=== PATIENT | female | born 1955 | race Caucasian/White ===

== ENCOUNTER 2022-06-11 13:24 | Outpatient (REF) | payer MEDICARE, OTHER, SELFPAY ==
[2022-06-11 13:52] LABS: MANUAL DIFF FLAG NO
[2022-06-11 14:31] LABS: Basophils Absolute Auto 0.1 X10*3/uL (0.0-0.2); Basophils Percent Auto 0.6 % (0-2); Eosinophils Absolute Auto 0.1 X10*3/uL (0.0-0.4); Eosinophils Percent Auto 1.4 % (0-4); Hematocrit 36.4 % (37.0-47.0); Imm Gran Abs Auto 0.02 X10*3/uL (0.00-0.03); Imm Gran Pct Auto 0.2 % (0.0-0.4); Lymphocytes Absolute Auto 2.1 X10*3/uL (1.2-4.9); Lymphocytes Percent Auto 26.2 % (20-40); Mean Corpuscular Hemoglobin 33.7 pg (27.0-33.0); Mean Corpuscular Volume 102.2 fL (80.0-98.0); Mean Platelet Volume 10.2 fL (9.4-12.3); Monocytes Percent Auto 11.9 % (2-11); Neutrophils Absolute Auto 4.8 x10*3/uL (2.0-8.3); Neutrophils Percent Auto 59.7 % (45-73); Platelet Count 152 X10*3/uL (160-400); Red Blood Count 3.56 X10*6/uL (4.20-5.50); Red Cell Distribution Width 13.5 % (11.0-16.0); White Blood Count 8.1 X10*3/uL (4.8-10.8)
[2022-06-11 15:15] LABS: Valproate 47.4 mcg/mL (50.0-100.0)
== END 2022-06-11 13:25 | disposition home or self-care (01) ==
LOC: HO.LAB 13:24
PROVIDERS: PCP Internal Medicine; Visit Provider Registered Nurse
DX: Z79.899 Other long term (current) drug therapy (principal)
CPT/HCPCS: 36415; 80164; 85025

== ENCOUNTER 2023-01-30 13:05 | Outpatient (REF) | payer MEDICARE, OTHER, SELFPAY ==
[2023-01-30 13:22] LABS: MANUAL DIFF FLAG NO
[2023-01-30 14:28] LABS: Basophils Percent Auto 0.5 % (0-2); Eosinophils Absolute Auto 0.1 X10*3/uL (0.0-0.4); Eosinophils Percent Auto 0.6 % (0-4); Hematocrit 34.4 % (37.0-47.0); Hemoglobin 11.5 g/dl (12.0-16.0); Imm Gran Abs Auto 0.05 X10*3/uL (0.00-0.03); Imm Gran Pct Auto 0.6 % (0.0-0.4); Lymphocytes Absolute Auto 1.7 X10*3/uL (1.2-4.9); Mean Corpuscular HGB Conc 33.4 g/dl (31.0-35.0); Mean Corpuscular Hemoglobin 34.8 pg (27.0-33.0); Mean Corpuscular Volume 104.2 fL (80.0-98.0); Mean Platelet Volume 9.8 fL (9.4-12.3); Monocytes Absolute Auto 0.9 X10*3/uL (0.1-1.2); Monocytes Percent Auto 9.8 % (2-11); Neutrophils Absolute Auto 6.1 x10*3/uL (2.0-8.3); Neutrophils Percent Auto 69.5 % (45-73); Platelet Count 152 X10*3/uL (160-400); White Blood Count 8.8 X10*3/uL (4.8-10.8)
[2023-01-30 15:25] LABS: Valproate 55.5 mcg/mL (50.0-100.0)
== END 2023-01-30 13:06 | disposition home or self-care (01) ==
LOC: HO.LAB 13:05
PROVIDERS: PCP Internal Medicine; Visit Provider Registered Nurse
DX: F31.9 Bipolar disorder, unspecified (principal); F41.1 Generalized anxiety disorder; Z79.899 Other long term (current) drug therapy
CPT/HCPCS: 36415; 80164; 85025

== ENCOUNTER 2023-05-29 11:41 | Outpatient (REF) | payer MEDICARE, OTHER, SELFPAY ==
[2023-05-29 11:54] LABS: MANUAL DIFF FLAG NO
[2023-05-29 13:00] LABS: Basophils Percent Auto 0.3 % (0-2); Eosinophils Absolute Auto 0.1 X10*3/uL (0.0-0.4); Hematocrit 34.2 % (37.0-47.0); Hemoglobin 11.4 g/dl (12.0-16.0); Imm Gran Abs Auto 0.03 X10*3/uL (0.00-0.03); Imm Gran Pct Auto 0.4 % (0.0-0.4); Lymphocytes Absolute Auto 1.7 X10*3/uL (1.2-4.9); Mean Corpuscular HGB Conc 33.3 g/dl (31.0-35.0); Mean Corpuscular Hemoglobin 35.1 pg (27.0-33.0); Mean Corpuscular Volume 105.2 fL (80.0-98.0); Mean Platelet Volume 10.1 fL (9.4-12.3); Monocytes Absolute Auto 0.9 X10*3/uL (0.1-1.2); Monocytes Percent Auto 13.3 % (2-11); Platelet Count 146 X10*3/uL (160-400); Red Blood Count 3.25 X10*6/uL (4.20-5.50); Red Cell Distribution Width 13.1 % (11.0-16.0); White Blood Count 6.7 X10*3/uL (4.8-10.8)
[2023-05-29 13:44] LABS: Valproate 49.4 mcg/mL (50.0-100.0)
[2023-05-29 13:53] LABS: Alanine Aminotransferase 13 U/L (0-31); Albumin Level 3.6 g/dL (3.5-5.0); Alkaline Phosphatase 89 U/L (39-117); Anion Gap 18 (12-20); Aspartate Amino Transferase 19 U/L (5-31); Bilirubin Total 0.4 mg/dL (0.0-1.0); Blood Urea Nitrogen 69 mg/dL (9-16); Calcium 9.9 mg/dL (8.4-10.2); Carbon Dioxide 33 mmol/L (22-29); Chloride 92 mmol/L (96-108); Estimated Glomerular Filt Rate 6; Glucose Fasting 116 mg/dL (60-99); Potassium 4.5 mmol/L (3.3-5.1); Sodium 138 mmol/L (135-145); Total Protein 7.4 g/dL (6.5-8.0)
== END 2023-05-29 11:42 | disposition home or self-care (01) ==
LOC: HO.LABR 11:41
PROVIDERS: Visit Provider Registered Nurse
DX: F31.9 Bipolar disorder, unspecified (principal); F41.1 Generalized anxiety disorder; Z79.899 Other long term (current) drug therapy
CPT/HCPCS: 36415; 80053; 80164; 85025

== ENCOUNTER 2023-09-19 11:01 | Outpatient (REF) | payer MEDICARE, OTHER, SELFPAY ==
[2023-09-19 11:48] LABS: Basophils Percent Auto 0.5 % (0-2); Eosinophils Percent Auto 1.9 % (0-4); Hematocrit 32.3 % (37.0-47.0); Hemoglobin 10.8 g/dl (12.0-16.0); Imm Gran Abs Auto 0.01 X10*3/uL (0.00-0.03); Imm Gran Pct Auto 0.5 % (0.0-0.4); Lymphocytes Absolute Auto 0.2 X10*3/uL (1.2-4.9); Lymphocytes Percent Auto 10.7 % (20-40); Mean Corpuscular HGB Conc 33.4 g/dl (31.0-35.0); Mean Corpuscular Volume 98.8 fL (80.0-98.0); Mean Platelet Volume 10.8 fL (9.4-12.3); Monocytes Absolute Auto 0.4 X10*3/uL (0.1-1.2); Monocytes Percent Auto 18.4 % (2-11); Neutrophils Absolute Auto 1.4 x10*3/uL (2.0-8.3); Red Blood Count 3.27 X10*6/uL (4.20-5.50); Red Cell Distribution Width 13.3 % (11.0-16.0); SCAN SMEAR FLAG 1
[2023-09-19 11:52] LABS: Platelet Count 93 X10*3/uL (160-400); White Blood Count 2.1 X10*3/uL (4.8-10.8)
[2023-09-19 11:54] LABS: MANUAL DIFF FLAG NO
[2023-09-19 12:17] LABS: Valproate 54.3 mcg/mL (50.0-100.0)
[2023-09-19 12:22] LABS: Alanine Aminotransferase 9 U/L (0-31); Albumin Level 3.8 g/dL (3.5-5.0); Alkaline Phosphatase 105 U/L (39-117); Anion Gap 16 (12-20); Aspartate Amino Transferase 16 U/L (5-31); Bilirubin Total 0.4 mg/dL (0.0-1.0); Blood Urea Nitrogen 114 mg/dL (9-16); Calcium 9.9 mg/dL (8.4-10.2); Carbon Dioxide 27 mmol/L (22-29); Chloride 97 mmol/L (96-108); Glucose Fasting 131 mg/dL (60-99); Potassium 3.8 mmol/L (3.3-5.1); Sodium 136 mmol/L (135-145); Total Protein 7.1 g/dL (6.5-8.0)
[2023-09-19 13:22] LABS: Estimated Glomerular Filt Rate 11
== END 2023-09-19 11:02 | disposition home or self-care (01) ==
LOC: HO.LAB 11:01
PROVIDERS: PCP Internal Medicine; Visit Provider Registered Nurse
DX: F31.9 Bipolar disorder, unspecified (principal); F41.1 Generalized anxiety disorder; Z79.899 Other long term (current) drug therapy
CPT/HCPCS: 36415; 80053; 80164; 85025

== ENCOUNTER 2023-09-22 12:50 | Outpatient (REF) | payer MEDICARE, OTHER, SELFPAY | END 2023-09-22 12:51 | disposition home or self-care (01) | LOC: HO.SH 12:50 | PROVIDERS: Visit Provider Physician Assistant | DX: Z01.118 Encounter for examination of ears and hearing with other abnormal findings (principal); H90.3 Sensorineural hearing loss, bilateral | CPT/HCPCS: 92557; 92567 ==

== ENCOUNTER → 2023-12-02 08:54 | Outpatient (BNV) | payer MEDICARE, OTHER, SELFPAY | PROVIDERS: PCP Internal Medicine; Referring Provider Student in an Organized Health Care Education/Training Program; Visit Provider Internal Medicine Medical Oncology | DX: D69.6 Thrombocytopenia, unspecified (principal) | CPT/HCPCS: 99204; 99213 ==

== ENCOUNTER 2024-02-11 11:25 | Outpatient (REF) | payer MEDICARE, OTHER, SELFPAY ==
[2024-02-11 11:52] LABS: MANUAL DIFF FLAG NO
[2024-02-11 12:22] LABS: Basophils Percent Auto 0.7 % (0-2); Eosinophils Percent Auto 1.3 % (0-4); Hematocrit 31.6 % (37.0-47.0); Hemoglobin 10.2 g/dl (12.0-16.0); Imm Gran Abs Auto 0.02 X10*3/uL (0.00-0.03); Imm Gran Pct Auto 0.7 % (0.0-0.4); Lymphocytes Absolute Auto 0.3 X10*3/uL (1.2-4.9); Lymphocytes Percent Auto 9.3 % (20-40); Mean Corpuscular HGB Conc 32.3 g/dl (31.0-35.0); Mean Corpuscular Hemoglobin 32.8 pg (27.0-33.0); Mean Corpuscular Volume 101.6 fL (80.0-98.0); Mean Platelet Volume 10.7 fL (9.4-12.3); Monocytes Absolute Auto 0.3 X10*3/uL (0.1-1.2); Neutrophils Absolute Auto 2.3 x10*3/uL (2.0-8.3); Platelet Count 147 X10*3/uL (160-400); Red Blood Count 3.11 X10*6/uL (4.20-5.50); Red Cell Distribution Width 13.6 % (11.0-16.0)
[2024-02-11 12:48] LABS: Valproate 48.4 mcg/mL (50.0-100.0)
[2024-02-11 13:08] LABS: Alanine Aminotransferase 20 U/L (0-31); Albumin Level 3.7 g/dL (3.5-5.0); Alkaline Phosphatase 94 U/L (39-117); Anion Gap 10 (12-20); Aspartate Amino Transferase 24 U/L (5-31); Bilirubin Total 0.6 mg/dL (0.0-1.0); Blood Urea Nitrogen 20 mg/dL (9-16); Calcium 10.5 mg/dL (8.4-10.2); Carbon Dioxide 24 mmol/L (22-29); Chloride 110 mmol/L (96-108); Estimated Glomerular Filt Rate 58; Glucose Fasting 94 mg/dL (60-99); Potassium 4.9 mmol/L (3.3-5.1); Sodium 139 mmol/L (135-145); Total Protein 6.5 g/dL (6.5-8.0)
== END 2024-02-11 11:26 | disposition home or self-care (01) ==
LOC: HO.LAB 11:25
PROVIDERS: PCP Internal Medicine; Visit Provider Registered Nurse
DX: Z79.899 Other long term (current) drug therapy (principal); F31.9 Bipolar disorder, unspecified; F41.1 Generalized anxiety disorder
CPT/HCPCS: 36415; 80053; 80164; 85025

== ENCOUNTER 2025-02-08 10:12 | Outpatient (REF) | payer MEDICARE, OTHER, SELFPAY ==
[2025-02-08 11:16] LABS: Appearance Urine Clear; Glucose Urine UA Negative (Negative); PH 6.0 (5.0-9.0); Specific Gravity - Urine 1.015 (1.005-1.025)
--- OUTSIDE RECORDS SUMMARY | 2025-02-08 11:19 | XMS_ITS ---
Author Organization [facility] Care Team Providers Care Contracts Specialist Name Role Phone Dillan Romo Unavailable Unavailable Aby Montano Unavailable Unavailable Kerrie Cronin Unavailable Unavailable Allergies and adverse reactions No Known Allergies Care Team Name Role Address Phone Organization Dates Dillan Romo PCP [address], [address], [facility] (Office): : [facility] 07/10/2023 - 07/24/2023 Aby Montano [address], [address], [facility] (Office): : [facility] 07/10/2023 - 07/24/2023 Kerrie Cronin 38 [facility] [address] [place] [address], [address], [facility] (Office): [facility] 07/10/2023 - 07/24/2023 Immunizations Immunization Status Vaccine Details Vaccine Code CodeSystem Date Notes Influenza cancelled Influenza, split virus, trivalent, injectable, contains preservative 141 CVX created date: 07/10/2023 consent date: 07/10/2023 Educated by on 07/10/2023 Tetanus completed tetanus immune globulin 13 CVX created date: 07/10/2023 administer ed date: 01/14/2006 (Shingles) Vaccine completed zoster vaccine recombinant 187 CVX created date: 07/10/2023 administer ed date: 01/23/2023 (Shingles) Vaccine completed zoster vaccine recombinant 187 CVX created date: 07/10/2023 administer ed date: 10/30/2022 (COVID-19) [employer] Original Primary Dose Vaccine 2 of 2 completed SARS-COV-2 (COVID-19) vaccine, mRNA, spike protein, LNP, preservative free, 30 mcg/0.3mL dose 208 CVX created date: 07/10/2023 administer ed date: 12/18/2020 (COVID-19) [employer] Original Primary Dose Vaccine 1 of 2 completed SARS-COV-2 (COVID-19) vaccine, mRNA, spike protein, LNP, preservative free, 30 mcg/0.3mL dose 208 CVX created date: 07/10/2023 administer ed date: 11/27/2020 (COVID-19) [facility] Original Booster Vaccine completed SARS-COV-2 (COVID-19) vaccine, mRNA, spike protein, LNP, preservative free, 30 mcg/0.3mL dose 208 CVX created date: 07/10/2023 administer ed date: 08/09/2021 (Tetanus, Diphtheria, and Acellular Pertussis) Tdap completed tetanus toxoid, reduced diphtheria toxoid, and acellular pertussis vaccine, adsorbed 115 CVX created date: 07/10/2023 administer ed date: 06/15/2013 (Pneumococcal) PCV20- Conjugate 20-valent Vaccine cancelled Pneumococcal conjugate vaccine 20-valent (PCV20), polysaccharide [id number] conjugate, adjuvant, preservative free 216 CVX created date: 07/10/2023 consent date: 07/10/2023 Educated by on 07/10/2023 Mental Status Section Date Assessment Total Score Description 07/24/2023 BIMS 15 cognitively int act CAM 0 No delirium ind icated PHQ-9 00 07/15/2023 BIMS 12 moderate cognit amrik impairment CAM 0 No delirium ind icated PHQ-9 00 Problems Problem # Description Date of onset Resolved Date Code CodeSystem Concern Status 1 ANEMIA, UNSPECIFIED 07/10/[address] active 2 BIPOLAR DISORDER, UNSPECIFIED 07/10/[address] active 3 END STAGE RENAL DISEASE 07/10/[address] active 4 HYPOTHYROIDISM, UNSPECIFIED 07/10/[address] active 5 IMMUNODEFICIENCY DUE TO DRUGS 07/10/[address] active 6 KIDNEY TRANSPLANT STATUS 07/10/[address] active 7 LOCALIZED EDEMA 07/10/[address] a ctive 8 MUSCLE WASTING AND ATROPHY, NOT ELSEWHERE CLASSIFIED, MULTIPLE SITES 07/10/[address] active 9 OTHER LACK OF COORDINATION 07/10/[address] active 10 UNSPECIFIED ATRIAL FIBRILLATION 07/10/[address] active Reason for Referral No Reasons for Referral Entered Social History Social History Observation Description Start Date End Date Code Code System Current Smoking Status Tobacco smoking consumption unknown 298609662 SNOMED CT Sex Assigned At Female 1955 44898-2 [facility] Gender Identity Vital Signs Code Code System Vitals Name Values and Units Timing Information 53318-7 [facility] Pain Level Value=0.0 07/24/2023 58584-4 [facility] Weight Aqoxz=334.6 Units=Lbs 9279-1 [facility] Respiratory Rate Value=18.0 Units=/m in 07/23/2023 8462-4 [facility] Blood Pressure-Diastolic Value=85 Un its=mmHg 07/23/2023 8480-6 [facility] Blood Pressure-Systolic Xxcpu=932 Un its=mmHg 07/23/2023 8310-5 [facility] Body Temperature Value=98.5 Units= F 07/23/2023 8867-4 [facility] Heart rate Value=89.0 Units=/min 87540-7 [facility] O2 % BldC Oximetry Value=95.0 Units= % 07/23/2023 2339-0 [facility] Blood Sugar Jdjcu=802.0 Units=mg/dL 07/16/2023 8302-2 [facility] Height Value=60.0 Units=Inches 07/11/2023
--- OUTSIDE RECORDS SUMMARY | 2025-02-08 11:19 | XMS_ITS | Clinical Summary ---
Author Organization [address] [place] [address] Address [address] [place] [address] Phone Care Team Providers Care Negative Turner Name Role Phone Ar Butler MD Primary Care Provider [phone] Allergies No known active allergies Medications acetaminophen (TYLENOL) 325 mg capsule Take by mouth as needed. Active B complex-vitamin C-folic acid (NEPHROCAPS) 1 mg capsule TAKE ONE CAPSULE BY MOUTH ONCE DAILY 4 Active albuterol HFA (PROAIR HFA ; PROVENTIL HFA ; VENTOLIN HFA) 90 mcg/actuation inhaler Inhale 2 Puffs into the lungs 4 times daily as needed for Cough, Wheezing or Shortness of Breath. 4 Active apixaban (ELIQUIS) 5 mg tablet Take 5 mg by mouth 2 times daily. 3 Active aspirin 81 mg EC tablet Take 1 tablet (81 mg total) by mouth 1 (one) time each day. 2 Active clotrimazole (LOTRIMIN) 1 % cream Take 10 mg by mouth. 3 Active divalproex (DEPAKOTE ER) 500 mg 24 hr tablet Take 1 Tablet by mouth 2 times daily. Take 2 tablets at night 4 Active docusate sodium (COLACE) 100 mg capsule Take 1 Capsule by mouth 3 times daily as needed. Active ferrous sulfate 325 mg (65 mg elemental iron) tablet Take 1 tablet (325 mg total) by mouth 1 (one) time each day. Active midodrine (PROAMATINE) 10 mg tablet Take 1 Tablet by mouth 3 times daily. 1/2 tablet twice daily as needed 4 Active senna (SENOKOT) 8.6 mg tablet Take 1 tablet (8.6 mg total) by mouth 1 (one) time each day. 2 Active sevelamer carbonate (RENVELA) 800 mg tablet Take 2 Tablets by mouth 3 times daily. 3 Active sulfamethoxazol e-trimethoprim (BACTRIM,SEPTRA ) 400-80 mg per tablet Take 1 tablet by mouth every other day. Active tacrolimus (Envarsus XR) 1 mg extended release tablet Take 5 tablets (5 mg total) by mouth 1 (one) time each day. 3 Active torsemide (DEMADEX) 20 mg tablet Take 3 tablets (60 mg total) by mouth 1 (one) time each day. 3 Active levothyroxine (SYNTHROID, LEVOTHROID) 75 mcg tablet Take 1 tablet (75 mcg total) by mouth 1 (one) time each day. 90 tablet 1 5 Active metoprolol succinate (TOPROL-XL) 25 mg 24 hr tablet Take 1 tablet (25 mg total) by mouth 1 (one) time each day. Do not crush or chew. 90 tablet 1 5 04/19/20 25 Active gabapentin (NEURONTIN) 100 mg capsule Take 1 capsule (100 mg total) by mouth 1 (one) time each day. 90 capsule 1 5 Active atorvastatin (LIPITOR) 80 mg tablet Take 1 tablet (80 mg total) by mouth at bedtime. at bedtime 90 tablet 1 5 Active Active Problems Problem Noted Date Diagnosed Date Primary hypertension 09/29/2024 Osteoporosis 05/15/2023 A-V fistula ([facility] V24) 03/21/2022 Dialysis patient ([facility] V24) 03/21/2022 Overview (06/18/2024): On hemodialysis Hemiparesis affecting left s brigette as late effect of stroke ([facility] V24, [facility] V28) 03/21/2022 Overview (06/18/2024): right basal ganglia infarct Anxiety and depression 02/22/2021 Overview (06/18/2024): Last Assessment & Plan: Patient encouraged to reach out to therapist. Reviewed resources including crisis hotline. 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 Seborrheic dermatitis of scalp 09/09/2011 Bipolar affective disorder ([facility] V24, [facility] V28) 08/06/2010 Thyroid nodule 08/06/2010 Hypothyroidism 04/30/2006 Encounters Date Type Department Care Team Description 11/18/2024 7:32 AM EDT - 11/18/2024 11:59 PM EDT Hospital Encounter [facility] Ortho Xray [address] [place] [address] Pain Discharge Disposition: Home or Self Care from Last 3 Months Immunizations Name Administration Dates Next Due Influenza Quadrivalent, 0.5m l, preservative free (Fluarix; FluLaval; Fluzone) ages 6mo and older (Afluria) 3yo and older 04/30/2016 Influenza trivalent, with pr eservative (Fluzone; Afluria) 6mo and older 05/15/2012,04/05/2011 Influenza, Unspecified 05/11/2014,05/11/2013 Td Tetanus diptheria (Tdvax) 7yo and older 01/14 Tdap Tetanus diptheria acell ular pertussis (Boostrix; Adacel) 7yo and older 06/15/2013 Surgical History Surgery Date Site/Laterality Comments COLONOSCOPY 10/27/2008 PROCEDURE: VA COLONOSCOPY STOMA DX INCLUDING COLLJ SPEC SPX; COMMENT: Up to cecum, adequate preparation. normal colon exam SECTION 1988 PROCEDURE: HISTORICAL DELIVERY; COMMENT: failure to progress MULTIPLE TOOTH EXTRACTIONS PROCEDURE: HISTORICAL DENTAL EXTRACTION EYE SURGERY 2012 Left PROCEDURE: HISTORICAL EYE SURGERY; COMMENT: tear l retina CATARACT EXTRACTION 2014 Right PROCEDURE: HISTORICAL CATARACT REMOVAL ANKLE SURGERY 04/28/2020 Right PROCEDURE: HISTORICAL ANKLE SURGERY; COMMENT: operative internal fixation COLONOSCOPY 11/02/2020 N/A PROCEDURE: HISTORICAL COLONOSCOPY; COMMENT: two tiny polyps-hyperplastic polyps OTHER SURGICAL HISTORY 12/07/2021 Right PROCEDURE: VA INSERT TUNNELED CVC W/O SUBQ PORT/RECORDS MANAGEMENT CLERK AGE <5 YR OTHER SURGICAL HISTORY 12/07/2021 PROCEDURE: ULTRASOUND GUIDANCE FOR VASCULAR AC OTHER SURGICAL HISTORY 02/13/2022 Left PROCEDURE: VA ARTERIOVENOUS ANASTOMOSIS OPEN DIRECT; COMMENT: Left brachiobasilic arteriovenous fistula creation, first stage basilic vein transposition OTHER SURGICAL HISTORY 05/09/2022 Left PROCEDURE: VA ARVEN ANAST OPN UPR ARM BASILIC VEIN TRPOS OTHER SURGICAL HISTORY 07/16/2022 PROCEDURE: VA INTRO CATH DIALYSIS CIRCUIT DX ANGRPH FLUOR S&I OTHER SURGICAL HISTORY 07/16/2022 PROCEDURE: ULTRASOUND GUIDANCE FOR VASCULAR AC Medical History Medical History Date Comments Unspecified hypothyroidism 04/30/2006 DX:Un specified hypothyroidism Bipolar affective disorder ( [facility] V24, [facility] V28) DX:Bipolar affective disorde r ([facility]); COMMENT: on Depakote since 2007 Dialysis patient ([facility] V24) 03/21/2022 D X:Dialysis patient ([facility]); COMMENT: On hemodialysis A-V fistula ([facility] V24) 03/21/2022 DX:A-V fistula ([facility]) Hemiparesis affecting left s brigette as late effect of stroke ([facility] V24, [facility] V28) 03/21/2022 DX:Hemiparesis affecting lef t side as late effect of stroke ([facility]); COMMENT: right basal ganglia infarct Family History Medical History Relation Name Comments Stroke Father Diabetes Mother AL, 2017 Breast cancer Other 1 m cousin Uterine cancer Other 2 m cousin Colon cancer Neg Hx Ovarian cancer Neg Hx Relation Name Status Comments Brother Alive Father stroke Maternal Grandfather Maternal Grandmother Mother Other 1 m cousin Alive Other 2 m cousin Alive Paternal Grandfather Paternal Grandmother Sister Alive Son Alive Social History Tobacco Use Types Packs/Day Years Used Date Smoking Tobacco: Never Smokeless Tobacco: Never Tobacco Cessation:Counseling Given: Not Answered Alcohol Use Standard Drinks/Week Comments Not Currently 0 (1 standard drink = 0.6 oz pur e alcohol) Comments No Sex and Gender Information Value Date Recorded Sex Assigned at Not on file Legal Sex Female 11:25 AM EST Gender Identity Not on file Sexual Orientation Not on file Obstetrics History Last Filed Vital Signs Vital Sign Reading Time Taken Comments Blood Pressure 120/60 09/29/2024 9:49 AM EST Pulse 70 09/29/2024 9:49 AM EST Temperature 36.4 C (97.6 F) 09/29/2024 9:49 AM EST Respiratory Rate 20 09/29/2024 9:49 AM EST Oxygen Saturation - - Inhaled Oxygen Concentration - - Weight 84.8 kg (187 lb) 09/29/2024 9:49 AM EST Height 160 cm (5' 3 ) 09/29/2024 9:49 AM EST Body Mass Index 33.13 09/29/2024 9:49 AM EST Plan of Treatment Upcoming Encounters Date Type Department Care Team (Late st Contact Info) Description 05/23/2025 9:30 AM EDT Office Visit Adult Medicine [address] [address] Ar Butler MD [address] [place] [id number] 06/10/2025 11:00 AM EST Appointment Radiology Department - [address] [address] Health Maintenance Due Date Last Done Comments RSV Immunization Adult Patients (1 - Risk 60-74 years 1-dose series) 2017 Social Influencers of Health Screening 07/06/2022 DTaP,Tdap,and Td Vaccines (3 - Td or Tdap) 06/15/2023 06/15/2013, 01/14/2006 Pneumococcal Vaccine: 50+ Years (2 of 2 - PCV) 10/17/2023 10/16/2022 COVID-19 Vaccine (5 - Pfizer risk 2023- season) 2024 05/31/2024, 08/09/2021, 12/18/2020, Additional history exists Depression Screening 03/23/2025 03/23/2024 Falls Risk Assessment 03/23/2025 03/23/2024 Medicare Annual Wellness Visit 03/23/2025 03/23/2024 Influenza Vaccine (#1) 2025 , 05/11/2021, 08/22/2020, Additional history exists Hypertension/CHF/CAD Annual BMP Blood Test 11/23/2025 11/23/2024, 12/17/2023, 12/17/2023 Breast Cancer Screening 05/13/2026 05/13/20, 05/13/2024, 05/01/2023, Additional history exists Cholesterol Screening (Lipid Panel) 11/23/2029 11/23/2024, 12/17/2023, 12/17/2023 Colorectal Cancer Screening: Colonoscopy 11/02/2030 11/02/2020 Osteoporosis Screening (Bone Density Screening) 05/01/2033 05/01/2023 Hepatitis C Screening Completed 06/15/2013 Zoster Vaccines Completed 01/23/2023, 10/30/2022 HIB Vaccines Aged Out No longer eligi ble based on patient's age to complete this topic HPV Vaccines Aged Out No longer eligi ble based on patient's age to complete this topic Hepatitis A Vaccines Aged Out No long er eligible based on patient's age to complete this topic Hepatitis B Vaccines Aged Out No long er eligible based on patient's age to complete this topic IPV Vaccines Aged Out No longer eligi ble based on patient's age to complete this topic MMR Vaccines Aged Out No longer eligi ble based on patient's age to complete this topic Meningococcal ACWY Vaccine Aged Out N o longer eligible based on patient's age to complete this topic Meningococcal B Vaccine Aged Out No l onger eligible based on patient's age to complete this topic RSV Immunization Patients Under 20 months Aged Out No longer eligible based on patient's age to complete this topic Varicella Vaccines Aged Out No longer eligible based on patient's age to complete this topic Procedures Procedure Name Priority Date/Time Associated Diagnosis Comments THYROID STIMULATING HORMONE WITH REFLEX TO FREE T4 AND FREE T3 Routine 11/23/2024 10:47 AM EDT Hypothyroidism, unspecified type COMPREHENSIVE METABOLIC PANEL Routine 11/23/2024 10:47 AM EDT Encounter for long-term (current) use of medications LIPID PANEL WITH REFLEX TO DIRECT LDL Routine 11/23/2024 10:47 AM EDT Pure hypercholesterolemia CYTOMEGALOVIRUS PCR QUANTITATIVE Routine 11/23/2024 10:47 AM EDT Kidney replaced by transplant XR TIBIA FIBULA 2 VIEWS RIGHT Routine 11/18/2024 9:06 AM EDT Pain SCREENING MAMMOGRAPHY BI 2-VIEW BREAST INC CAD Routine 05/13/2024 9:54 AM EDT Encounter for screening mammogram for malignant neoplasm of breast DEPRESSION SCREENING Routine 03/23/2024 FALLS RISK ASSESSMENT Routine 03/23/2024 DXA BONE DENSITY STUDY 1+ SITS AXIAL SKEL Routine 05/01/2023 10:00 AM EDT Asymptomatic menopausal state COLONOSCOPY Routine 11/02/2020 HEPATITIS C SCREENING Routine 06/15/2013 from Last 3 Months or Most Recently Relevant to Health Maintenance Results * Thyroid stimulating hormone with reflex to free t4 and free t3 (11/23/2024 10:47 AM EDT) TSH 1.92 0.40 - 4.00 mcIU/mL LAB CHEMISTRY METHOD 11/23/2024 5:47 PM EDT [facility] Blood Venous blood specimen / Unknown Venipuncture / Unknown 11/23/2024 10:47 AM EDT 11/23/2024 10:47 AM EDT us Ar Butler MD LAB BLOOD ORDERABLES Final Resu lt [facility] [address] [place] [address], [place] [phone] * Lipid panel with reflex to direct LDL (11/23/2024 10:47 AM EDT) Cholesterol 145 0 - 200 mg/dL LAB CHEMISTRY METHOD 11/23/2024 2:55 PM EDT [facility] Triglycerides 61 0 - 150 mg/dL LAB CHEMISTRY METHOD 11/23/2024 2:55 PM EDT [facility] HDL 55 >=40 mg/dL LAB CHEMISTRY METHOD 11/23/2024 2:55 PM EDT [facility] LDL Calculated 78 0 - 100 mg/dL LAB CHEMISTRY METHOD 11/23/2024 2:55 PM EDT [facility] VLDL Cholesterol Derek 12.2 mg/dL LAB CHEMISTRY METHOD 11/23/2024 2:55 PM EDT [facility] Non HDL Chol. (LDL+VLDL) 90 <145 mg/dL LAB CHEMISTRY METHOD 11/23/2024 2:55 PM EDT [facility] Chol/HDL Ratio 2.6 0.0 - 4.4 LAB CHEMISTRY METHOD 11/23/2024 2:55 PM EDT [facility] Blood Venous blood specimen / Unknown Venipuncture / Unknown 11/23/2024 10:47 AM EDT 11/23/2024 10:47 AM EDT us Ar Butler MD LAB BLOOD ORDERABLES Final Resu lt [facility] [address] [place] [address], [place] [phone] * Cytomegalovirus molecular study quantitative (11/23/2024 10:47 AM EDT) Cytomegalovirus (CMV) DNA Qualitative Not detected Not detected 11/26/2024 9:19 AM EDT [facility] Cytomegalovirus (CMV) DNA Quantitative <30 <30 IU/mL 11/26/2024 9:19 AM EDT [facility] Log Cytomegalovirus <1.48 <1.48 Log (10) IU/mL 11/26/2024 9:19 AM EDT [facility] CMV DNA (cp/mL) <76 <76 Copies/mL 11/26/2024 9:19 AM EDT [facility] Comment: This test uses a polymerase chain reaction (PCR) assay from [employer] to amplify and detected conserved regions of the cytomegalovirus (CMV) genome that have been extracted from plasma. Real-time detection and quantification are used to determine the viral concentration. The analytical measurement range is 30 IU/mL to 10 million IU/mL (1.48 to 7.00 log10 IU/mL). The lower limit of detection is 30 IU/mL (1.48 log10 IU/mL). Specimens reported as DETECTED but <30 IU/mL contain detectable levels of CMV DNA but the viral load is less than the lower limit of quantitation (30 IU/mL). A negative result does not rule out infection. Test performed at [facility], [address] , [place] [address] Marialuisa Mendieta MD, PhD - Ways Operator Blood Venous blood specimen / Unknown Venipuncture / Unknown 11/23/2024 10:47 AM EDT 11/23/2024 10:47 AM EDT Grayson Merino MD LAB MICROBIOLOGY - GENERAL OR DERABLES Final Result [facility] [address] [place] [address] * (ABNORMAL) Comprehensive metabolic panel (11/23/2024 10:47 AM EDT) Sodium 143 133 - 145 mmol/L LAB CHEMISTRY METHOD 11/23/2024 2:55 PM EDT [facility] Potassium 4.4 3.5 - 5.5 mmol/L LAB CHEMISTRY METHOD 11/23/2024 2:55 PM EDT [facility] Chloride 111(H) 96 - 110 mmol/L LAB CHEMISTRY METHOD 11/23/2024 2:55 PM EDT [facility] CO2 25 21 - 32 mmol/L LAB CHEMISTRY METHOD 11/23/2024 2:55 PM [facility] Anion Gap 7 3 - 11 LAB CHEMISTRY METHOD 11/23/2024 2:55 PM [facility] Glucose 88 70 - 100 mg/dL LAB CHEMISTRY METHOD 11/23/2024 2:55 PM [facility] BUN 30(H) 5 - 25 mg/dL LAB CHEMISTRY METHOD 11/23/2024 2:55 PM [facility] Creatinine 0.83 0.50 - 1.10 mg/dL LAB CHEMISTRY METHOD 11/23/2024 2:55 PM [facility] eGFR 77 >=60 mL/min/1. 73m2 LAB CHEMISTRY METHOD 11/23/2024 2:55 PM [facility] Comment:Calculation based on the Chronic Kidney Disease Epidemiology Collaboration (CKD-EPI) equation refit without adjustment for race. BUN/Creatinine Ratio 36.1 LAB CHEMISTRY METHOD 11/23/2024 2:55 PM [facility] Calcium 9.9 8.5 - 10.5 mg/dL LAB CHEMISTRY METHOD 11/23/2024 2:55 PM [facility] AST (SGOT) 28 10 - 42 unit/L LAB CHEMISTRY METHOD 11/23/2024 2:55 PM [facility] ALT (SGPT) 25 10 - 60 unit/L LAB CHEMISTRY METHOD 11/23/2024 2:55 PM [facility] Alkaline Phosphatase 62 42 - 121 unit/L LAB CHEMISTRY METHOD 11/23/2024 2:55 PM [facility] Total Protein 6.5 6.0 - 8.0 g/dL LAB CHEMISTRY METHOD 11/23/2024 2:55 PM [facility] Albumin 3.1(L) 3.2 - 5.0 g/dL LAB CHEMISTRY METHOD 11/23/2024 2:55 PM EDT [facility] Total Bilirubin 0.5 0.0 - 1.4 mg/dL LAB CHEMISTRY METHOD 11/23/2024 2:55 PM EDT [facility] Blood Venous blood specimen / Unknown Venipuncture / Unknown 11/23/2024 10:47 AM EDT 11/23/2024 10:47 AM EDT Ar Butler MD LAB BLOOD ORDERABLES Final Resu lt [facility] [address] [place] [address], [place] [phone] * XR Tibia Fibula 2 Views Right (11/18/2024 9:06 AM EDT) Narrative RIS PACS/VR - 11/18/2024 9:06 AM EDT This order has been auto-finalized and does not contain a result. Emily Hernandez MD IMG XR PROCEDURES Final Result Performing Organization Address [facility]/ZIP Co de Phone Number RIS PACS/VR * SCREENING MAMMOGRAPHY BI 2-VIEW BREAST INC CAD (05/13/2024 9:54 AM EDT) Anatomical Region Laterality Modality Radiographic Blanca ging 05/01/2023 9:07 AM EDT Narrative 05/13/2024 11:59 AM EDT This is a summary report. The complete report is available in the patient's medical record. If you cannot access the medical record, please contact the sending organization for a detailed fax or copy. Full field digital screening tomosynthesis mammography, reviewed with CAD and compared to previous. The breasts are composed of fatty and fibroglandular tissue. No suspicious mass, architectural distortion or suspicious calcifications are identified. IMPRESSION: : No mammographic evidence of malignancy. BIRADS 1-Negative; N. Breast density: The breasts have scattered areas of fibroglandular density. 5 year breast cancer risk assessment 2.3 % Lifetime breast cancer risk assessment 8.2 % Breast cancer risk category Low (<15%) Location: [facility], [address] [place] [address], [address], [phone] Procedure Note Phani Regan MD - 05/25/2024 This is a summary report. The complete report is available in thepatient's medical record. If you cannot access the medical record, pleasecontact the sending organization for a detailed fax or copy. Full field digital screening tomosynthesis mammography, reviewed with CADand compared to previous. The breasts are composed of fatty andfibroglandular tissue. No suspicious mass, architectural distortion orsuspicious calcifications are identified. IMPRESSION: : No mammographic evidence of malignancy. BIRADS 1-Negative; N. Breast density: The breasts have scattered areas of fibroglandulardensity. 5 year breast cancer risk assessment 2.3 % Lifetime breast cancer risk assessment 8.2 % Breast cancer risk category Low (<15%) Location: [facility], [address] [place] [address], [address], [phone] Essence BECKER IMG XR PROCEDURES Final Result * Falls Risk Assessment (03/23/2024) Falls Risk Assessment abstracted Historical Provider HEALTH MAINTENANCE Final Result * Depression Screening (03/23/2024) Depression Screening abstracted Historical Provider HEALTH MAINTENANCE Final Result * DXA BONE DENSITY STUDY 1+ SITS AXIAL SKEL (05/01/2023 10:00 AM EDT) Anatomical Region Laterality Modality Bone Densitometr y 08/22/2022 11:5 3 AM EST Narrative 05/01/2023 10:42 AM EDT BONE DENSITY (DEXA) Lumbar Spine T-score is -2.9. (SD relative to 20-29 y/o adult) Z-score is -1.0. (SD relative to age matched peers) This is considered osteoporosis by WHO criteria. Left Hip T-score is -2.8. Z-score is -1.2. This is considered osteoporosis by WHO criteria. IMPRESSION: This patient is considered to have osteoporosis by WHO criteria. The [facility] Department of Internal Medicine recommends using National Osteoporosis Foundation (NOF) guidelines in treatment decisions related to osteoporosis. NOF guidelines suggest considering treatment for postmenopausal women and men aged 50 or older presenting with the following: History of hip or vertebral fracture. T-score = -2.5 (DXA) at the femoral neck, total hip, or spine, after appropriate evaluation to exclude secondary causes. Low bone mass (T-score between -1.0 and -2.5 at the femoral neck or spine) AND a 10-year probability of a hip fracture = 3% OR a 10-year probability of a major osteoporosis-related fracture = 20% based on the [place]-adapted WHO algorithm Please note that all treatment decisions require clinical judgment and consideration of individual patient factors, including patient preferences, co-morbidities, previous drug use, risk factors not captured in the FRAX model (e.g., frailty, falls, vitamin D deficiency, increased bone turnover, interval significant decline in bone density) and possible under- or over-estimation of fracture risk by FRAX. Optional alternative screening schedule based on [address] [facility] August 15, 2011 for patients with osteopenia (based on hip BMD T-score) is as follows: * advanced osteopenia (T scores -2.00 to -2.49), BMD testing every year * moderate osteopenia (T scores -1.50 to -1.99), BMD testing every 5 years mild osteopenia or normal BMD (T scores -1.50 and higher), BMD testing every 15 years Procedure Note Any Mendoza MD - 09/02/2023 BONE DENSITY (DEXA) Lumbar Spine T-score is -2.9. (SD relative to 20-29 y/o adult) Z-score is -1.0. (SD relative to age matched peers) This is considered osteoporosis by WHO criteria. Left Hip T-score is -2.8. Z-score is -1.2. This is considered osteoporosis by WHO criteria. IMPRESSION: This patient is considered to have osteoporosis by WHO criteria. The [facility] Department of Internal Medicinerecommends using National Osteoporosis Foundation (NOF) guidelines in treatment decisionsrelated to osteoporosis. NOF guidelines suggest considering treatment forpostmenopausal women and men aged 50 or older presenting with the following: History of hip or vertebral fracture. T-score = -2.5 (DXA) at the femoral neck, total hip, or spine, afterappropriate evaluation to exclude secondary causes. Low bone mass (T-score between -1.0 and -2.5 at the femoral neck or spine)AND a 10-year probability of a hip fracture = 3% OR a 10-year probability of a majorosteoporosis-related fracture = 20% based on the [place]-adapted WHO algorithm Please note that all treatment decisions require clinical judgment andconsideration of individual patient factors, including patient preferences, co- morbidities,previous drug use, risk factors not captured in the FRAX model (e.g., frailty, falls, vitaminD deficiency, increased bone turnover, interval significant decline in bone density) andpossible under- or over-estimation of fracture risk by FRAX. Optional alternative screening schedule based on [address] [facility] for patients with osteopenia (based on hip BMD T-score) is as follows: * advanced osteopenia (T scores -2.00 to -2.49), BMD testing every year * moderate osteopenia (T scores -1.50 to -1.99), BMD testing every 5years mild osteopenia or normal BMD (T scores -1.50 and higher), BMD testingevery 15 years Artemio Rivas [facility] IM DXA PROCEDURES Final Resu lt * Colonoscopy (11/02/2020) [facility] Colonoscopy no interpretation , abstracted Anatomical Region Laterality Modality Other Historical Provider HEALTH MAINTENANCE Final Result * Hepatitis C Screening (06/15/2013) [facility] Hepatitis C Screening abstracted Historical Provider HEALTH MAINTENANCE Final Result from Last 3 Months or Most Recently Relevant to Health Maintenance [place] [id number] MEDICARE [facility] Advance Directives Documents on File Type Date Recorded Patient Manager Managing Expl anation Health Care Decision (hx) 04/14/2024 HE ALTH CARE PROXY Health Care Decision (hx) 04/14/2024 HE ALTH CARE PROXY Health Care Decision (hx) 12/08/2021 AD WILLARD DIRECTIVE Health Care Decision (hx) 12/08/2021 AD WILLADR DIRECTIVE Health Care Decision (hx) 12/08/2021 AD WILLARD DIRECTIVE Health Care Decision (hx) 12/08/2021 AD WILLARD DIRECTIVE Health Care Decision (hx) 12/08/2021 AD WILLARD DIRECTIVE Health Care Decision (hx) 12/08/2021 AD WILLARD DIRECTIVE Health Care Decision (hx) 12/08/2021 AD WILLARD DIRECTIVE Health Care Decision (hx) 12/08/2021 AD WILLARD DIRECTIVE Health Care Decision (hx) 12/08/2021 AD WILLARD DIRECTIVE Health Care Decision (hx) 12/08/2021 AD WILLARD DIRECTIVE Health Care Decision (hx) 12/08/2021 AD WILLARD DIRECTIVE Health Care Decision (hx) 12/08/2021 AD WILLARD DIRECTIVE Health Care Decision (hx) 12/08/2021 AD WILLARD DIRECTIVE Care Teams Negative Turner Relationship Specialty Start Date End Date Ar Butler MD [address] [place] [phone] PCP - General Internal Medicine 08/03/24
--- OUTSIDE RECORDS SUMMARY | 2025-02-08 11:19 | XMS_ITS | Encounter Summary ---
Author Organization [facility] Address [address] [place] [address] [place] [address] Phone Care Team Providers Care Bracelet Form Coverer Name Role Phone Ar Butler MD Primary Care Provider Encounter Details Date Type Department Care Team (Late st Contact Info) Description 07/15/2023 Documentation Only [facility] [address] [place] [address] Justin Stapleton MD [address] [place] [address] Dr. Юлия [place] [phone] Social History Tobacco Use Types Packs/Day Years Used Date Smoking Tobacco: Never Assessed Comments Unknown Sex and Gender Information Value Date Recorded Sex Assigned at Not on file Legal Sex Female 4:51 PM EST Gender Identity Not on file Sexual Orientation Not on file documented as of this encounter Plan of Treatment Upcoming Encounters Date Type Department Care Team (Late st Contact Info) Description 05/20/2025 9:15 AM EDT Office Visit [facility] P.. [address] [phone] Grayson Merino MD [address] [phone] documented as of this encounter Visit Diagnoses Not on filedocumented in this encounter Care Teams Bracelet Form Coverer Relationship Specialty Start Date End Date Ar Butler MD [address] [place] [phone] PCP - General 08/07/20 documented as of this encounter
[2025-02-08 11:51] LABS: Anion Gap 10 (12-20); Blood Urea Nitrogen 28 mg/dL (9-16); Calcium 10.1 mg/dL (8.4-10.2); Carbon Dioxide 27 mmol/L (22-29); Chloride 109 mmol/L (96-108); Estimated Glomerular Filt Rate > 60; Potassium 4.8 mmol/L (3.3-5.1); Sodium 141 mmol/L (135-145)
[2025-02-08 12:16] LABS: Microalbum/Creatinine Ratio Ur 20.3 ug/mg cr (<30); Total Protein Urine Random < 7 mg/dL (<12)
[2025-02-09 20:44] LABS: CMV DNA Qn PCR NOT DETECTED Log IU/mL (NOT DETECTED)
== END 2025-02-08 10:13 | disposition home or self-care (01) ==
LOC: HO.LAB 10:12
PROVIDERS: Absent Provider Registered Nurse; PCP Internal Medicine; Referring Provider Internal Medicine Medical Oncology; Visit Provider Internal Medicine Nephrology
DX: Z79.899 Other long term (current) drug therapy (principal)
CPT/HCPCS: 36415; 80051; 81001; 82043; 82310; 82565; 82570; 84156; 84520; 87497

== ENCOUNTER 2025-06-03 12:46 | Outpatient (REF) | payer MEDICARE, OTHER, SELFPAY ==
[2025-06-03 13:06] LABS: MANUAL DIFF FLAG NO
[2025-06-03 14:16] LABS: Hematocrit 34.0 % (37.0-47.0); Hemoglobin 11.0 g/dl (12.0-16.0); Imm Gran Abs Auto 0.02 X10*3/uL (0.00-0.03); Imm Gran Pct Auto 0.5 % (0.0-0.4); Lymphocytes Absolute Auto 0.8 X10*3/uL (1.2-4.9); Mean Corpuscular HGB Conc 32.4 g/dl (31.0-35.0); Mean Corpuscular Hemoglobin 31.6 pg (27.0-33.0); Mean Corpuscular Volume 97.7 fL (80.0-98.0); NRBC Abs Auto 0.000 X10*3/uL (0.0-0.012); NRBC Pct Auto 0.0 /100WBC (0.0-0.2); Platelet Count 110 X10*3/uL (160-400); Red Blood Count 3.48 X10*6/uL (4.20-5.50); White Blood Count 4.3 X10*3/uL (4.8-10.8)
[2025-06-03 14:53] LABS: Alanine Aminotransferase 16 U/L (0-31); Albumin Level 3.5 g/dL (3.5-5.0); Alkaline Phosphatase 52 U/L (39-117); Anion Gap 9 (12-20); Aspartate Amino Transferase 27 U/L (5-31); Blood Urea Nitrogen 32 mg/dL (9-16); Calcium 10.1 mg/dL (8.4-10.2); Carbon Dioxide 25 mmol/L (22-29); Chloride 110 mmol/L (96-108); Estimated Glomerular Filt Rate > 60; Potassium 4.8 mmol/L (3.3-5.1); Sodium 139 mmol/L (135-145); Total Protein 6.0 g/dL (6.5-8.0)
--- OUTSIDE RECORDS SUMMARY | 2025-06-03 14:55 | XMS_ITS | Encounter Summary ---
Author Organization [facility], Address [address] [place] [address] [place] [address] Phone Care Team Providers Care Garment Manufacturing Supervisor Name Role Phone Ar Butler MD Primary Care Provider [phone] Encounter Details Date Type Department Care Team (Late st Contact Info) Description 07/15/2023 Documentation Only [facility], [address] [place] [address] Justin Stapleton MD [address] [place] [phone] Social History Tobacco Use Types Packs/Day Years [...] Care Team (Late st Contact Info) Description 08/22/2025 10:30 AM EST Office Visit [facility] [address] [phone] Grayson Merino MD [address] [phone] documented as of this encounter Visit Diagnoses Not on filedocumented in this encounter Care Teams Garment Manufacturing Supervisor Relationship Specialty Start Date End Date Ar Butler MD [address] [place] [phone] PCP - General 08/07/20 documented as of this encounter
--- OUTSIDE RECORDS SUMMARY | 2025-06-03 14:55 | XMS_ITS ---
Author Name [facility] Organization Unknown Care Team Organization Name Specialty Phone Email Start Date End Da te [facility] 03/16/2025 [facility] DORY JOSE Primary Care 07/09/2023 [facility] Desiree Cunningham Primary Care 04/03/2023 024
--- OUTSIDE RECORDS SUMMARY | 2025-06-03 14:55 | XMS_ITS | Clinical Summary ---
Author Organization [facility] Address [address] [phone] Phone Care Team Providers Care Strategic Accounts Manager Name Role Phone Ar Butler MD Primary Care Provider [phone] Allergies No known active allergies Medications divalproex (DEPAKOTE) 500 MG 24 hr tablet Take 1,000 mg by mouth in the morning and 1,000 mg in the evening. 1 Active levothyroxine (SYNTHROID, LEVOTHROID) 75 MCG tablet Take 1 tablet by mouth 1 (one) time each day 1 Active cholecalciferol (VITAMIN D-3) 25 MCG (1000 UT) tablet Take 25 mcg by mouth 1 (one) time each day 3 Active Acetaminophen (Tylenol) 325 MG capsule Take 650 mg by mouth every 4 (four) hours if needed Active aspirin (ST COLE) 81 MG EC tablet Take 1 tablet by mouth 1 (one) time each day 2 Active atorvastatin (LIPITOR) 80 MG tablet Take 1 tablet by mouth at bed time 3 Active gabapentin (NEURONTIN) 100 MG capsule Take 100 mg by mouth at bed time 3 Active senna (SENOKOT) 8.6 MG tablet Take 1 tablet by mouth 1 (one) time each day if needed for constipation 2 Active torsemide (DEMADEX) 20 MG tablet Take 1 tablet by mouth 1 (one) time if needed 3 Active Multiple Vitamin (multivitamin) tablet Take 1 tablet by mouth 1 (one) time each day Active BELATACEPT IV Infuse into a venous catheter Active metoprolol succinate XL (TOPROL XL) 25 MG 24 hr tabletIndicatio ns:Kidney transplant status,Hyperten keyla TAKE ONE TABLET BY MOUTH ONCE DAILY 90 tablet 3 5 Active ferrous sulfate 325 (65 Fe) MG EC tablet Take 325 mg by mouth in the morning and 325 mg at noon and 325 mg in the evening. Take with meals. Do not crush, chew, or split.. Active Melatonin-Pyrid oxine (MELATIN PO) Take 325 mg by mouth Active traZODone (DESYREL) 50 MG tablet Take 50 mg by mouth every night Active mycophenolate (MYFORTIC) 360 MG EC tabletIndicatio ns:Kidney transplant status TAKE 1 TABLET (360 MG TOTAL) BY MOUTH IN THE MORNING AND 1 TABLET (360 MG TOTAL) IN THE EVENING. 60 tablet 3 5 02/29/20 26 Active Active Problems Problem Noted Date Diagnosed Date Kidney transplant status 12/31/2023 Kidney transplant failure 12/29/2023 Decreased libido 02/22/2021 Overview (06/25/2021): Last Assessment & Plan: Ways to increase libido were discussed including: Use a product such as K-Y Jelly to lubricate your vagina during sex. Increase the amount of foreplay before sex. Reduce your stress before sex by taking a warm bath or doing something else to help you relax. Enjoy other types of sexual activity besides intercourse Discussed relation of sexual dysfunction to underlying causes including depression, medications, life stress, etc. Supportive counseling including encouraging patient to create time and special space for sexual expression, free from distractions. Suggest a variety in sexual practices including romantic novels, movies, and different techniques with partner including the use of lubricants, vibrators and toys as tolerated. Essential hypertension 08/17/2019 Secondary hyperparathyroidism 06/16/2018 Vitamin D deficiency 02/06/2018 Stage 5 chronic kidney disease 08/14/2017 Overview (06/25/2021): Dr Edmond [place] nephropathy 08/16/2016 Seborrheic dermatitis of scalp 09/09/2011 Encounters Date Type Department Care Team Description 05/20/2025 9:15 AM EDT Office Visit [facility] [address] [phone] Grayson Merino MD Kidney transplant status (Primary Dx); Essential hypertension from Last 3 Months Immunizations Immunization Administration Dates Next Due Influenza TIV (IM) 04/24/2015,05/15/2012, 011 Influenza, MDCK, PF, Quadrivalent 05/11/2021,,04/09/2018 Influenza, Quadrivalent, Preservative Free 04/29,04/30/2016 Influenza, Unspecified 04/30/2016,05/11/2014, Pfizer SARS-COV-2 08/09/2021,12/18/2020,11/28/19 21 Shingrix 01/23/2023,10/30/2022 Td 01/14/2006 Tdap 06/15/2013 Tetanus 01/14/2006 Family History Relation Status Comments Father Mother Social History Tobacco Use Types Packs/Day Years Used Date Smoking Tobacco: Never Smokeless Tobacco: Never Tobacco Cessation:Counseling Given: Not Answered Alcohol Use Standard Drinks/Week Comments Never 0 (1 standard drink = 0.6 oz pur e alcohol) Comments Unknown Sex and Gender Information Value Date Recorded Sex Assigned at Not on file Legal Sex Female 4:51 PM EST Gender Identity Not on file Sexual Orientation Not on file Last Filed Vital Signs Vital Sign Reading Time Taken Comments Blood Pressure 120/60 05/20/2025 9:17 AM EDT Pulse 77 05/20/2025 9:17 AM EDT Temperature - - Respiratory Rate - - Oxygen Saturation 98% 05/20/2025 9:17 AM EDT Inhaled Oxygen Concentration - - Weight 81.2 kg (179 lb) 05/20/2025 9:17 AM EDT Height - - Body Mass Index - - Plan of Treatment Upcoming Encounters Date Type Department Care Team (Late st Contact Info) Description 08/22/2025 10:30 AM EST Office Visit [facility] [address] [phone] Grayson Merino MD [address] [phone] Health Maintenance Due Date Last Done Comments Breast Cancer Screening 1955 Pneumococcal Vaccine: 50+ Years (1 of 2 - PCV) 1976 Colonoscopy (Post-Transplant Patient) 06/27/2023 Mammogram (Post-Transplant Patient) 06/27/2023 Pelvic Exam (Post-Transplant Patient) 06/27/2023 Influenza Vaccine (#1) 2025 , 08/22/2020, 04/09/2018, Additional history exists Hepatitis B Vaccine Aged Out No longe r eligible based on patient's age to complete this topic Procedures Procedure Name Priority Date/Time Associated Diagnosis Comments PTH, INTACT Routine 05/26/2025 11:10 AM EDT Kidney transplant status Essential hypertension CBC AND DIFFERENTIAL Routine 05/26/2025 11:10 AM EDT Kidney transplant status Essential hypertension PROTEIN / CREATININE RATIO, URINE Routine 05/26/2025 11:10 AM EDT Kidney transplant status Essential hypertension URINE ALBUMIN / CREATININE RATIO Routine 05/26/2025 11:10 AM EDT Kidney transplant status Essential hypertension URINALYSIS WITH MICROSCOPIC Routine 05/26/2025 11:10 AM EDT Kidney transplant status Essential hypertension RENAL FUNCTION PANEL Routine 05/26/2025 11:10 AM EDT Kidney transplant status Essential hypertension MICROSCOPIC EXAMINATION - DO NOT USE Routine 05/26/2025 11:10 AM EDT from Last 3 Months Results * Microscopic Examination (05/26/2025 11:10 AM EDT) WBC, Urine 0-5 0 - 5 /hpf [facility] RBC, Urine None seen 0 - 2 /hpf [facility] Squamous Epithelial, Urine 0-10 0 - 10 /hpf [facility] Casts None seen None seen /lpf [facility] Bacteria, Urine None seen None seen/Few [facility] 05/26/2025 11:1 0 AM EDT 05/26/2025 Grayson Merino MD LAB MICROBIOLOGY - GENERAL OR DERABLES Final Result Performing Organization Address [facility]/ZIP Co de Phone Number [facility] [address] [place] [address] * Protein, Total, Random Urine w/Creatinine (Protein/Creat Ratio) (05/26/2025 11:10 AM EDT) Creatinine, Ur 52.1 Not Estab. mg/dL [facility] Protein, Ur 6.0 Not Estab. mg/dL [facility] Urine Protein/Creatin ine Ratio 115 0 - 200 mg/g creat [facility] Urine Urine specimen obtained by clean catch procedure / Unknown 05/26/2025 11:10 AM EDT 05/26/2025 Grayson Merino MD LAB URINE ORDERABLES Final Re sult Performing Organization Address [facility] Co de Phone Number [facility] [address] [place] [phone] * Urine Albumin / Creatinine Ratio (05/26/2025 11:10 AM EDT) Albumin, Urine 9.1 Not Estab. ug/mL [facility] Albumin/Creatin ine Ratio 17 0 - 29 mg/g creat [facility] Comment: Normal: 0 - 29 Moderately increased: 30 - 300 Severely increased: >300 Urine Urine specimen obtained by clean catch procedure / Unknown 05/26/2025 11:10 AM EDT 05/26/2025 Grayson Merino MD LAB URINE ORDERABLES Final Re sult [facility] [address] [place] [address] * (ABNORMAL) Urinalysis with microscopic (05/26/2025 11:10 AM EDT) Specific [place], Urine 1.018 1.005 - 1.030 [facility] pH Urine 6.5 5.0 - 7.5 [facility] [phone] Color, Urine Yellow Yellow [facility] Appearance Urine Clear Clear [facility] WBC Esterase Urine 1+(A) Negative [facility] Protein, Ur Negative Negative/Tra ce [facility] Glucose, Ur Negative Negative [facility] [phone] Ketones, Urine Negative Negative [facility] Blood Urine Negative Negative [facility] Bilirubin Urine Negative Negative [facility] [phone] Urobilinogen Urine 0.2 0.2 - 1.0 mg/dL [facility] Nitrite, Urine Negative Negative [facility] [phone] Microscopic Examination See below: [facility] Comment:Microscopic was vicky cated and was performed. Urine Urine specimen obtained by clean catch procedure / Unknown 05/26/2025 11:10 AM EDT 05/26/2025 Grayson Merino MD LAB URINE ORDERABLES Final Re sult [facility] [address] [place] [address] * (ABNORMAL) CBC and differential (05/26/2025 11:10 AM EDT) WBC 4.7 3.4 - 10.8 x10E3/uL [facility] RBC 3.59(L) 3.77 - 5.28 x10E6/uL [facility] Hemoglobin 11.8 11.1 - 15.9 g/dL [facility] Hematocrit 36.0 34.0 - 46.6 % [facility] MCV 100(H) 79 - 97 fL [facility] MCH 32.9 26.6 - 33.0 pg [facility] MCHC 32.8 31.5 - 35.7 g/dL [facility] RDW 12.2 11.7 - 15.4 % [facility] Platelets 102(L) 150 - 450 x10E3/uL [facility] Neutrophils Relative 61 Not Estab. % [facility] Lymphocytes Relative 22 Not Estab. % [facility] Monocytes 13 Not Estab. % [facility] Eosinophils Relative 2 Not Estab. % [facility] Basophils Relative 1 Not Estab. % [facility] Neutrophils Absolute 2.9 1.4 - 7.0 x10E3/uL [facility] Lymphocytes Absolute 1.0 0.7 - 3.1 x10E3/uL [facility] Monocytes Absolute 0.6 0.1 - 0.9 x10E3/uL [facility] Eosinophils Absolute 0.1 0.0 - 0.4 x10E3/uL [facility] Basophils Absolute 0.0 0.0 - 0.2 x10E3/uL [facility] Immature Granulocytes 1 Not Estab. % [facility] Immature Grans (Absolute) 0.1 0.0 - 0.1 x10E3/uL [facility] Blood Venous blood / Unknown 05/26/2025 11:10 AM EDT 05/26/2025 Grayson Merino MD LAB BLOOD ORDERABLES Final Re sult Performing Organization Address City/[facility]/ZIP Co de Phone Number [facility] [address] [place] [address] * PTH, intact (05/26/2025 11:10 AM EDT) PTH 60 15 - 65 pg/mL [facility] Blood Venous blood / Unknown 05/26/2025 11:10 AM EDT 05/26/2025 Grayson Merino MD LAB BLOOD ORDERABLES Final Re sult Performing Organization Address City/[facility]/ZIP Co de Phone Number [facility] [address] [place] [address] * (ABNORMAL) Renal Function Panel (05/26/2025 11:10 AM EDT) Glucose 90 70 - 99 mg/dL [facility] BUN 32(H) 8 - 27 mg/dL [facility] Creatinine 0.86 0.57 - 1.00 mg/dL [facility] eGFR CKD-EPI CR 2020 74 >59 mL/min/1.7 3 [facility] BUN/Creatinine Ratio 37(H) 12 - 28 [facility] Sodium 141 134 - 144 mmol/L [facility] Potassium 5.2 3.5 - 5.2 mmol/L [facility] Chloride 106 96 - 106 mmol/L [facility] Bicarbonate (CO2) 23 20 - 29 mmol/L [facility] Calcium 10.9(H) 8.7 - 10.3 mg/dL [facility] Albumin 3.8(L) 3.9 - 4.9 g/dL [facility] Phosphorus 2.8(L) 3.0 - 4.3 mg/dL [facility] Blood Venous blood / Unknown 05/26/2025 11:10 AM EDT 05/26/2025 us Grayson Merino MD LAB BLOOD ORDERABLES Final Re sult [facility] [address] [place] [phone] from Last 3 Months Insurance Medicare [facility] Medicare [facility] Care Teams Strategic Accounts Manager Relationship Specialty Start Date End Date Ar Butler MD [address] [place] [phone] PCP - General 08/07/20
--- OUTSIDE RECORDS SUMMARY | 2025-06-03 14:55 | XMS_ITS | Data Portability ---
Author Organization [facility], Main Office Address [address] [facility], [address] [place] [address] Care Team Providers Care Back Joiner Name Role Phone CYNDY SEGOVIA 1ST FLOOR OTHER DORY JOSE Primary Care Provider [phone] Assessment No assessment recorded. Plan of Treatment Reminders Order Date Submit Date Provider Last Modified By Organization Details Last Modified Time Details Appointments None record ed. Lab None record ed. Referral None record ed. Procedures None record ed. Surgeries None record ed. Imaging None record ed. Medication Orders None record ed. Patient TargetsNo targets recorded. Patient InstructionsNo instructions recorded. Reason for Referral None Reported. Problems Name Problem SNOMED Code Status Onset Date Resolution Date Notes Provider Name and Address Organization Details Recorded Time Bipolar disorder 48965814 Active 2019 CELIO MADRIGAL NP [address] [facility], [address], [place], [address], [facility] [employer] 0 12:37:48 Hypothyroid ism 32269875 Active 2019 CELIO MADRIGAL NP [address] , [address], [place], [address], [facility] [employer] 0 12:38:18 Chronic kidney disease 384614010 Active 2019 CELIO MADRIGAL NP [address] [facility], [address], [place], [address], [facility] [employer] 0 12:38:26 Essential hypertensio n 64082323 Active 2019 CELIO MADRIGAL NP [address] , [address], [place], [address], [facility] [employer] 0 12:38:42 Closed fracture of right ankle 1303032151785 9103 Active 2019 ECLIO MADRIGAL NP [address] [facility], [address], [place], [address], [facility] 0 12:49:39 End-stage renal disease 03729626 Active 2019 Dillan Romo MD [address], [address], [place], [address], [facility] 0 12:37:59 End stage renal failure with renal transplant 870735778 Active 2022 Kerrie Cronin MD [address] [facility], [address], [place], [address], [facility] 3 21:33:11 Edema of lower extremity 015934958 Active 2022 Kerrie Cronin MD [address] [facility], [address], [place], [address], [facility] 3 21:34:01 Leukopenia 68545973 Active 2022 Kerrie Cronin MD [address] [facility], [address], [place], [address], [facility] 3 21:37:05 Atrial fibrillatio n 53967103 Active 2022 Kerrie Cronin MD [address] [facility], [address], [place], [address], [facility] 3 21:38:01 Hyperlipide syeda 67538886 Active 2022 Kerrie Cronin MD [address] [facility], [address], [place], [address], [facility] 3 21:40:07 Orthostatic hypotension 68880273 Active 2022 Kerrie Cronin MD [address] [facility], [address], [place], [address], [facility] 3 21:41:00 Asthenia 18472876 Active 2022 CELIO MADRIGAL NP [address] [facility], [address], [place], [address], [facility] 3 12:09:14 Problem Notes None recorded. Medical Equipment None Reported. Allergies No known drug allergies Vitals Date Recorded Body weight Body mass index (BMI) Body height Heart rate Respiratory rate Body temperature Oxygen saturation Oxygen saturation in Arterial blood by Pulse oximetry Systolic And Diastolic Provider Name and Address Organization Details Last Updated DateTime 3 96975.8 3 g 42.3 kg/m2 152.4 cm 72 /min 16 /min 97.7 [degF] 95 % 95 % 135/73 mm[Hg] Kerrie Cronin MD [address] [facility] [address], [place], [address], [facility] 3 19:24:26 Date Recorded Body height Heart rate Respiratory rate Body temperature Oxygen saturation Oxygen saturation in Arterial blood by Pulse oximetry Body mass index (BMI) Body weight Systolic And Diastolic Provider Name and Address Organization Details Last Updated DateTime 3 152.4 cm 80 /min 16 /min 97.6 [degF] 96 % 96 % 39.9 kg/m2 16211.2 g 124/62 mm[Hg] CELIO MADRIGAL NP [address] [facility] [address], [place], [address], [facility] 3 13:19:56 Date Recorded Body height Heart rate Respiratory rate Body temperature Oxygen saturation Oxygen saturation in Arterial blood by Pulse oximetry Systolic And Diastolic Provider Name and Address Organization Details Last Updated DateTime 3 152.4 cm 80 /min 16 /min 97.8 [degF] 96 % 96 % 122/60 mm[Hg] CELIO MADRIGAL NP [address] [facility], [facility] [address], [place], [address], [facility] 3 12:08:39 Date Recorded Body height Body mass index (BMI) Body weight Heart rate Respiratory rate Body temperature Oxygen saturation Oxygen saturation in Arterial blood by Pulse oximetry Systolic And Diastolic Provider Name and Address Organization Details Last Updated DateTime 3 152.4 cm 39.8 kg/m2 00362.4 8 g 76 /min 16 /min 98.2 [degF] 97 % 97 % 112/75 mm[Hg] CELIO MADRIGAL NP [address] [facility] [address], [place], [address], [facility] 3 10:36:05 Date Recorded Body height Body mass index (BMI) Body weight Heart rate Respiratory rate Body temperature Oxygen saturation Oxygen saturation in Arterial blood by Pulse oximetry Systolic And Diastolic Provider Name and Address Organization Details Last Updated DateTime 3 152.4 cm 40 kg/m2 67121.0 8 g 98 /min 16 /min 98.8 [degF] 95 % 95 % 153/81 mm[Hg] CELIO MADRIGAL NP [address] [facility], [address], [place], [address], [facility] 3 12:16:39 Social History Question Answer Notes LastModified by [employer] Details LastModified Time Tobacco Smoking Status Never Smoker CELIO MADRIGAL NP [address] [facility], [address], [place], [address], [facility] 05/03/2020 12:39:35 Do You Have An Advance Directive? Yes Full Code Information not available 05/03/2020 What Is Your Code Status? Full Code Don't Use Non-invasi ve Vent Information not available 07/11/2023 Where Do You Live? [facility] Lives With Information not available 07/11/2023 Legal Guardian? No Informati on not available 07/11/2023 Do You Have A Medical Power Of Security Systems Manager? Yes Information not available 07/11/2023 What Was The Date Of Your Most Recent Tobacco Screening? 07/11/2023 Information not available 07/11/2023 Do You Have An Out Of Hospital DNR? No Information not available 07/11/2023 What Is Your Relationship Status? Information not available 07/11/2023 Has Tobacco Cessation Counseling Been Provided? No N/a As Pt Is Non-smoker Information not available 07/11/2023 Sex: Unknown Functional Status Question Answer Note LastModified by [employer] Details LastModified Time Do you use any illicit or recreational drugs? No Information not available 07/11/2023 Do you or have you ever used any other forms of tobacco or nicotine? No Information not available 07/11/2023 What is your level of alcohol consumption? None denies drug use Information not available 05/03/2020 Mental Status None recorded. Family History Nothing Reported Notes:n/c Medical History No medical history recorded. Gynecological HistoryNo gynecological history recorded. Obstetrics History GPAL:G 0 P 0 0 0 0 Past Encounters Encounter ID Performer Location Encounter Start Date Encounter Closed Date Diagnosis/Indication Diagnosis SNOMED-CT Code Diagnosis ICD10 Code Diagnosis IMO Codes Diagnosis Note [id number] CELIO MADRIGAL NP [address] [place] [address] 05/03/2020 12:36:05 05/08/2020 09:31:52 Bipolar disorder 09023120 F31.9 depakote 1000 mg hs psych prn Chronic ki dney disease 969487073 N18.9 sodium bicarb 650 bid calcitrol 0.25 mg M &F Essential hypertension 29088201 I10 amlodipine 5 mg daily Hypothyroidism 47219617 E03.9 levothyrox ine 75 mcg daily Closed fra cture of right ankle 6543142103 6148293 S82.891D ice elevation prn oxycodone 5 or 10 mg po q8 hr prn monitor for any neuro changes to toes monitor for any drainage through the dressings and shaun wrap [id number] Dillan Romo MD [address] [place] [address] 05/05/2020 12:31:40 05/08/2020 09:49:36 Closed fracture of right ankle 9455838997 9889818 S82.851D see HPInow s/p ORIFfollow ortho recsPT OT eval and treatmonit or for pain controlon ASA 325 mg qd End-stage renal disease 02062796 N18.6 advanced renal disease at baseline not on HDpatient is on waiting list for renal transplant cre=4.9 on discharge from hospitalav oid nephrotoxi c meds as ablenephro consult prn and update with concerns Essential hypertension 63084315 I10 norvasc 5 mg qdmonitor bp Bipolar disorder 5866163 4 F31.89 depakote 1000 mg qhsmonitor for sx controlpsy ch to follow prn Hypothyroidism 17266369 E03.8 maintained on synthroidc ontinue and monitor tsh prn [id number] JANNET LÓPEZ NP [address] [place] [address] 05/09/2020 12:47:00 05/12/2020 16:05:38 Closed fracture of right ankle 5862848641 9149538 S82.851D see HPInow s/p ORIFfollow ortho recsPT OT eval and treat - not recommendi ng d/c home at this pointmonit or for pain controlon ASA 325 mg qd End-stage renal disease 11693264 N18.6 advanced renal disease at baseline not on HDpatient is on waiting list for renal transplant cre=4.9 on discharge from hospitalav oid nephrotoxi c meds as ablenephro consult prn and update with concerns Essential hypertension 01917314 I10 norvasc 5 mg qdmonitor bp Bipolar disorder 5486497 4 F31.89 depakote 1000 mg qhsmonitor for sx controlpsy ch to follow prn Hypothyroidism 10856162 E03.8 maintained on synthroidc ontinue and monitor tsh prn [id number] Kerrie Cronin MD [address] [place] [address] 07/11/2023 19:17:25 07/16/2023 18:39:41 End stage renal failure with renal transplant 070112063 N18.6 Z94.0 Improving gradually. Continue tacrolimus 6 mg qd (titrated by transplant team), cinacalcet 30 mg qd, and sevelamer 800 mg TID.Contin ue Bactrim SS qod and clotrimazo le lozenges TID for infection prophylaxi s.Valganci clovir on hold due to leukopenia .F/U with transplant team as planned. Bipolar disorder 6921509 4 F31.89 Mood a little pressured tonight, but pretty good.Tatyana nue depakote 1000 mg qd, gabapentin 100 mg qd, and melatonin 5 mg qhs.Monito r mood.Consu lt psych prn Leukopenia 04896612 D70. 8 Thought due to valgancicl ovir, so it is on hold. Not rechecked since 07/10.Will recheck on saturday 07/14.Norma tor need for leukopenic precaution s if ANC drops <1500 Atrial fibrillation 4943 6004 I48.0 Rate in good control on no meds.Tatyana nue eliquis 5 mg BID for AC.Monitor HR and bleeding risk. Hypothyroidism 05582035 E03.8 Continue levothyrox ine 75 mcg qd.Monitor TSH as outpt. Hyperlipidemia 94974584 E78.49 Continue atorvastat in 80 mg qd. and ASA 81 mg qd.Monitor labs as outpt. Orthostati c hypotension 46907215 I95.1 Pretty good since here, some low readings.C ontinue midodrine 5 mg BID prn SBP<110.Mo nitor sxs and BP Edema of l ower extremity 157644005 R60.0 Still moderate.C ontinue torsemide 40 mg qd and spironolac tone 50 mg qd.Monitor sxs, BP and labs. [id number] CARLITA ROCK [address] [facility] [place] [address] 07/14/2023 13:11:00 07/16/2023 18:56:27 End stage renal failure with renal transplant 783575701 N18.6 Z94.0 Improving gradually. Continue tacrolimus 6 mg qd (titrated by transplant team), cinacalcet 30 mg qd, and sevelamer 800 mg TID.Contin ue Bactrim SS qod and clotrimazo le lozenges TID for infection prophylaxi s.Valganci clovir on hold due to leukopenia .F/U with transplant team as planned. Edema of l ower extremity 713091753 R60.0 Still moderate.C ontinue torsemide 40 mg qd and spironolac tone 50 mg qd.Monitor sxs, BP and labs. Bipolar disorder 4097259 4 F31.89 Mood a little pressured tonight, but pretty good.Tatyana nue depakote 1000 mg qd, gabapentin 100 mg qd, and melatonin 5 mg qhs.Monito r mood.Consu lt psych prn Leukopenia 81322817 D70. 8 Thought due to valgancicl ovir, so it is on hold. Not rechecked since 07/10.Will recheck on saturday 07/14-not done, will recheck fridayMon itor need for leukopenic precaution s if ANC drops <1500 Atrial fibrillation 4943 6004 I48.0 Rate in good control on no meds.Tatyana nue eliquis 5 mg BID for AC.Monitor HR and bleeding risk. Hypothyroidism 63020714 E03.8 Continue levothyrox ine 75 mcg qd.Monitor TSH as outpt. Hyperlipidemia 01597053 E78.49 Continue atorvastat in 80 mg qd. and ASA 81 mg qd.Monitor labs as outpt. Orthostati c hypotension 84241529 I95.1 Pretty good since here, some low readings.C ontinue midodrine 5 mg BID prn SBP<110.Mo nitor sxs and BP [id number] CELIO MADRIGAL NP [address] [address] 07/16/2023 12:08:06 07/17/2023 20:20:41 End stage renal failure with renal transplant 797918368 N18.6 Z94.0 Improving gradually. Continue tacrolimus 6 mg qd (titrated by transplant team), cinacalcet 30 mg qd, and sevelamer 800 mg TID.Contin ue Bactrim SS qod and clotrimazo le lozenges TID for infection prophylaxi s.Valganci clovir on hold due to leukopenia .F/U with transplant team as planned. Asthenia 97050954 R53.1 PT OT eval and treatfall precaution sfrequent safety checks [id number] CELIO MADRIGAL NP [address] [address] 07/18/2023 10:17:31 08/04/2023 15:00:47 End stage renal failure with renal transplant 253697796 N18.6 Z94.0 Improving gradually. Continue tacrolimus 4 mg qd (titrated by transplant team), cinacalcet 30 mg qd, and sevelamer 800 mg TID.Contin ue Bactrim SS qod and clotrimazo le lozenges TID for infection prophylaxi s.Valganci clovir on hold due to leukopenia .F/U with transplant team as planned. Asthenia 00612040 R53.1 PT OT eval and treatfall precaution sfrequent safety checks Edema of l ower extremity 193537363 R60.0 Still moderate.C ontinue torsemide 40 mg qd and spironolac tone 50 mg qd.Monitor sxs, BP and labs. Bipolar disorder 0025585 4 F31.89 Mood a little pressured, but pretty good.Tatyana nue depakote 1000 mg qd, gabapentin 100 mg qd, and melatonin 5 mg qhs.Monito r mood.Consu lt psych prn Leukopenia 38076617 D70. 8 Thought due to valgancicl ovir, so it is on hold. Not rechecked since 07/10.Will recheck friday-no changesMon itor need for leukopenic precaution s if ANC drops <1500 Atrial fibrillation 4943 6004 I48.0 Rate in good control on no meds.Tatyana nue eliquis 5 mg BID for AC.Monitor HR and bleeding risk. Hypothyroidism 26373736 E03.8 Continue levothyrox ine 75 mcg qd.Monitor TSH as outpt. Hyperlipidemia 35465831 E78.49 Continue atorvastat in 80 mg qd. and ASA 81 mg qd.Monitor labs as outpt. Orthostati c hypotension 28891234 I95.1 Pretty good since here, some low readings.C ontinue midodrine 5 mg BID prn SBP<110.Mo nitor sxs and BP [id number] CARLITA ROCK [address] [place] [address] [place] [address] 07/23/2023 12:11:09 08/05/2023 09:48:21 End stage renal failure with renal transplant 973358441 N18.6 Z94.0 Improving gradually. Continue tacrolimus qd (titrated by transplant team), cinacalcet 30 mg qd, and sevelamer 800 mg TID.Contin ue Bactrim SS qod and clotrimazo le lozenges TID for infection prophylaxi s.Valganci clovir on hold due to leukopenia .F/U with transplant team as planned. Asthenia 83082350 R53.1 PT OT eval and treatfall precaution sfrequent safety checks Edema of l ower extremity 363560646 R60.0 Still moderate.C ontinue torsemide 40 mg qd and spironolac tone 50 mg qd.Monitor sxs, BP and labs. Bipolar disorder 1767120 4 F31.89 Mood a little pressured, but pretty good.Tatyana nue depakote 1000 mg qd, gabapentin 100 mg qd, and melatonin 5 mg qhs.Monito r mood.Consu lt psych prn Leukopenia 26531092 D70. 8 Thought due to valgancicl ovir, so it is on hold.Monit or need for leukopenic precaution s if ANC drops <1500 Atrial fibrillation 4943 6004 I48.0 Rate in good control on no meds.Tatyana nue eliquis 5 mg BID for AC.Monitor HR and bleeding risk. Hypothyroidism 43523082 E03.8 Continue levothyrox ine 75 mcg qd.Monitor TSH as outpt. Hyperlipidemia 07419425 E78.49 Continue atorvastat in 80 mg qd. and ASA 81 mg qd.Monitor labs as outpt. Orthostati c hypotension 49390783 I95.1 Pretty good since here, some low readings.C ontinue midodrine 5 mg BID prn SBP<110.Mo nitor sxs and BP Health Concerns Section Related Observation LastModified by Organization Detai ls LastModified Time None Recorded Concern Status LastModified by Organization Details LastModified Time None Recorded Advance Directives Directive Y: full code Payers Insurance Date Sequence Insurance Name Policy Number Policy Martínez Covered Member ID Martínez Member ID Guarantor Name 07/11/2023 1 [facility] (O) [id number] Juve Fink Mary [id number] Corinne Hernandez 07/23/2023 2 [facility] (MEDICARE SUPPLEMENT) Corinne Mary [id number] Corinne Hernandez 07/16/2023 1 MEDICARE B-[place]: [facility] Corinne Olsen Mary [id number] 1 Corinne Hernandez Notes Date Note Type Note Provider Name and Address Organization Details Recorded Time 07/11/2023 text/html This is a 68 yo woman who is here for rehab after a rehospitalization after a recent kidney transplant. She was [place] [facility] [place] and had a donor transplant. She became hypotensive post op and required pressors and 4U PRBCs. Donor kidney had + fungal cxs and she was started on fluconazole as well as standard antiinfective txs. She had some hypoxia and required CPAP. During the last course of her hospital stay, she was noted to have a decrease in urine output to 600 cc over the last 24 hours. Renal ultrasound 07/01/2023 was positive for hydronephrosis as well as some elevated resistive indices. A Case was placed a.m. of 07/02/2023 prior to discharge with over 200 cc of urine output. She had delayed graft functioning and required ongoing dialysis. She was d/c'd to home on 07/02 despite recs for STR.She was seen in transplant clinic on 07/07 and was having trouble moving around. and son were having difficulty caring for her and her edema had increased. She was directly admitted to the hospital.She got IV lasix. Her hgb dropped to 6.8 on 07/09 and she got a unit of PRBCs. She became leukopenic, although ANC remained >1500, and she had a complete infectious w/u which was neg. Tacrolimus was titrated. Spironolacton was added and she had good urine output. Furosemide was changed to torsemide. Her creatinine continued to improve. She was transferred here on 07/10.Since here her vitals have been good. She was seen by transplant team today and tacrolimus increased to 6 mg. 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, Kerrie Cronin MD [address] [facility], [address], [place], [address], [facility] 07/11/2023 21:42:28 07/14/2023 text/html ROS as noted in the HPI seen today for acute rounding visit, cAOx3 up in wheelchair, abd incision healing well, has appt with transplant center today, no med changes done, lungs clear, eating and drinking fair CELIO MADRIGAL NP [address] [facility], [address], [place], [address], [facility] 07/15/2023 13:04:56 07/16/2023 text/html ROS as noted in the HPI seen today for acute rounding visit- CAOx3 up in wheelchair, abd incision healing well, goes to the transplant clinic with medicaition recommendations by them, she did have a fall this am without injury, eating and drinking fairly well CELIO MADRIGAL NP [address] [facility], [address], [place], [address], [facility] 07/16/2023 12:12:14 07/18/2023 text/html ROS as noted in the HPI seen today for acute rounding visit- 68 yo woman who is here for rehab after a rehospitalization after a recent kidney transplant. She was originally admitted at [facility] [place] and had a donor transplant. She became hypotensive post op and required pressors and 4U PRBCs. Donor kidney had + fungal cxs and she was started on fluconazole as well as standard antiinfective txs. She had some hypoxia and required CPAP. During the last course of her hospital stay, she was noted to have a decrease in urine output to 600 cc over the last 24 hours. Renal ultrasound 07/01/2023 was positive for hydronephrosis as well as some elevated resistive indices. A Case was placed a.m. of 07/02/2023 prior to discharge with over 200 cc of urine output. She had delayed graft functioning and required ongoing dialysis. She was d/c'd to home on 07/02 despite recs for STR.She was seen in transplant clinic on 07/07 and was having trouble moving around. and son were having difficulty caring for her and her edema had increased. She was directly admitted to the hospital.She got IV lasix. Her hgb dropped to 6.8 on 07/09 and she got a unit of PRBCs. She became leukopenic, although ANC remained >1500, and she had a complete infectious w/u which was neg. Tacrolimus was titrated. Spironolacton was added and she had good urine output. Furosemide was changed to torsemide. Her creatinine continued to improve. She was transferred here on 07/10.Since here her vitals have been good. She was seen by transplant team and tacrolimus monitored and changed by them. CAOx3 up in wheelchair, lungs clear, she had a fall the other day, apparently slid out of her wheelchair, she denies any discomfort or distress, abd incision healing well, medically stable at time of visit CELIO MADRIGAL, CARLITA [address] [facility], [address], [place], [address], [facility] 07/22/2023 12:46:32 07/23/2023 text/html ROS as noted in the HPI seen today for discharge summary- 68 yo woman who is here for rehab after a rehospitalization after a recent kidney transplant. She was originally admitted at [facility] [place] and had a donor transplant. She became hypotensive post op and required pressors and 4U PRBCs. Donor kidney had + fungal cxs and she was started on fluconazole as well as standard antiinfective txs. She had some hypoxia and required CPAP. During the last course of her hospital stay, she was noted to have a decrease in urine output to 600 cc over the last 24 hours. Renal ultrasound 07/01/2023 was positive for hydronephrosis as well as some elevated resistive indices. A Case was placed a.m. of 07/02/2023 prior to discharge with over 200 cc of urine output. She had delayed graft functioning and required ongoing dialysis. She was d/c'd to home on 07/02 despite recs for STR.She was seen in transplant clinic on 07/07 and was having trouble moving around. and son were having difficulty caring for her and her edema had increased. She was directly admitted to the hospital.She got IV lasix. Her hgb dropped to 6.8 on 07/09 and she got a unit of PRBCs. She became leukopenic, although ANC remained >1500, and she had a complete infectious w/u which was neg. Tacrolimus was titrated. Spironolacton was added and she had good urine output. Furosemide was changed to torsemide. Her creatinine continued to improve. She was transferred here on 07/10.Since here her vitals have been good. She was seen by transplant team and tacrolimus monitored and changed by them. CAOx3 up in wheelchair, lungs clear, she denies any discomfort or distress, abd incision healing well, medically stable at time of visit CELIO MADRIGAL, CARLITA [address] [facility], [address], [place], [address], [facility] 07/23/2023 12:18:43 OBGyn Episode No OBEpisode recorded.
--- OUTSIDE RECORDS SUMMARY | 2025-06-03 14:55 | XMS_ITS | Encounter Summary ---
Author Organization [facility], Address [address] [place] [address] [place] [phone] Phone Care Team Providers Care Bid Manager Name Role Phone Ar Butler MD Primary Care Provider [phone] Encounter Details Date Type Department Care Team (Late st Contact Info) Description 07/22/2023 Documentation Only [facility], [address] [place] [phone] Justin Stapleton MD [address] [phone] Social History Tobacco Use Types Packs/Day Years [...] Visit [facility] [address] [phone] Grayson Merino MD [address] [phone] documented as of this encounter Visit Diagnoses Not on filedocumented in this encounter Care Teams Bid Manager Relationship Specialty Start Date End Date Ar Butler MD [address] [place] [phone] PCP - General 08/07/20 documented as of this encounter
--- OUTSIDE RECORDS SUMMARY | 2025-06-03 14:55 | XMS_ITS | Encounter Summary ---
Author Organization [facility], Address [address] [place] [address] [place] [phone] Phone Care Team Providers Care Bulk Sugar Handler Name Role Phone Ar Butler MD Primary Care Provider Encounter Details Date Type Department Care Team (Late st Contact Info) Description 07/25/2023 Documentation Only [facility], [address] [phone] Justin Stapleton MD [address] [place] [address] [place] [phone] Social History Tobacco Use Types Packs/Day Years [...] Visit [facility] [address] [phone] Grayson Merino MD [address] [phone] documented as of this encounter Visit Diagnoses Not on filedocumented in this encounter Care Teams Bulk Sugar Handler Relationship Specialty Start Date End Date Ar Butler MD [address] [place] [phone] PCP - General 08/07/20 documented as of this encounter
--- OUTSIDE RECORDS SUMMARY | 2025-06-03 14:55 | XMS_ITS ---
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 Name Role Phone Dillan Romo Unavailable Unavailable Odessa Dickinson Unavailable Allergies and adverse reactions No Known Allergies Care Team Name Role Address Phone Organization Dates Dillan Romo PCP [address], [place], [facility], [facility] (Office): : [facility] 05/01/2020 - 05/09/2020 Odessa Dickinson [address], [place], [address], [facility] (Office): : [facility] 05/01/2020 - 05/09/2020 Mental Status Section Date Assessment Total Score Description 05/09/2020 CAM 0 No delirium ind icated 05/08/2020 BIMS 15 cognitively int act CAM 0 No delirium ind icated PHQ-9 02 minimal depress ion Insurance Providers Problems Problem # Description Date of onset Resolved Date Code CodeSystem Concern Status 1 HISTORY OF FALLING 05/02/[address] active 2 OTHER ABNORMALITIES OF GAIT AND MOBILITY 05/02/[address] active 3 ACIDOSIS 05/01/[address] active 4 ANEMIA IN CHRONIC KIDNEY DISEASE 05/01/[address] active 5 BIPOLAR DISORDER, UNSPECIFIED 05/01/[address] active 6 CHRONIC KIDNEY DISEASE, STAGE 5 05/01/[address] active 7 DISORDER OF THYROID, UNSPECIFIED 05/01/[address] active 8 DISPLACED TRIMALLEOLAR FRACTURE OF RIGHT LOWER LEG, SUBSEQUENT ENCOUNTER FOR CLOSED FRACTURE WITH ROUTINE HEALING 05/01/[address] active 9 ESSENTIAL (PRIMARY) HYPERTENSION 05/01/[address] active 10 HYPOTHYROIDISM, UNSPECIFIED 05/01/[address] active 11 NEPHROPATHY INDUCED BY UNSPECIFIED DRUG, MEDICAMENT OR BIOLOGICAL SUBSTANCE 05/01/[address] active 12 OTHER FRACTURE OF UPPER AND LOWER END OF RIGHT FIBULA, SUBSEQUENT ENCOUNTER FOR CLOSED FRACTURE WITH ROUTINE HEALING 05/01/[address] active Reason for Referral No Reasons for Referral Entered Social History Social History Observation Description Start Date End Date Code Code System Current Smoking Status Tobacco smoking consumption unknown 833949564 SNOMED CT Sex Assigned At Female 1955 [address]645-4 [facility] Gender Identity Sexual Orientation Vital Signs Code Code System Vitals Name Values and Units Timing Information 9279-1 [facility] Respiratory Rate Value=18.0 Units=/m in 05/09/2020 8462-4 [facility] Blood Pressure-Diastolic Value=62 Un its=mmHg 05/09/2020 8480-6 [facility] Blood Pressure-Systolic Bfyhn=805 Un its=mmHg 05/09/2020 8310-5 [facility] Body Temperature Value=96.3 Units= F 05/09/2020 8867-4 [facility] Heart rate Value=61.0 Units=/min 98831-0 [facility] O2 % BldC Oximetry Value=96.0 Units= % 05/09/2020 8302-2 [facility] Height Value=63.0 Units=Inches 05/05/2020
--- OUTSIDE RECORDS SUMMARY | 2025-06-03 14:56 | XMS_ITS | Clinical Summary ---
Author Organization [facility] Address [facility]ly [facility] [place] [address] [address] Phone Care Team Providers Care Systems Auditor Name Role Phone Ar Butler MD Primary Care Provider + Social History Tobacco Use Types Packs/Day Years Used Date Smoking Tobacco: Never Assessed Education Answer Date Recorded Are you interested in more education? Not on vicki e 11/22/2022 Are you concerned about learning? Not on file 11/22/2022 No 11/22/2022 No 11/22/2022 Digital Access Answer Date Recorded No 12/21/2022 No 12/21/2022 No 12/21/2022 Reliable internet access at home? Not on file 12/21/2022 Device with a working camera? Not on file Comments Unknown Sex and Gender Information Value Date Recorded Sex Assigned at Female 04/17/2020 4:37 PM EDT Legal Sex Female 4:14 PM EDT Gender Identity Female 04/17/2020 4:37 PM EDT Sexual Orientation Straight 04/17/2020 4: 37 PM EDT Plan of Treatment Health Maintenance Due Date Last Done Comments LIPID PANEL 1957 DEPRESSION SCREENING 1969 SMOKING Hx and SMOKELESS TOBACCO SCREENING 1970 HEPATITIS C SCREENING 1975 MAMMOGRAM 1997 COLOGUARD 2002 COLONOSCOPY 2002 COLORECTAL CANCER SCREENING 2002 FIT TEST 2002 FOBT 2002 SIGMOIDOSCOPY 2002 VIRTUAL COLONOSCOPY 2002 PNEUMOCOCCAL VACCINES (50+ years) (1 of 1 - PCV) 2007 ZOSTER VACCINES (1 of 2) 2007 OSTEOPOROSIS SCREENING INITIAL (ONE-TIME) 2022 Adult Td,Tdap Booster 06/15/2023 06/15/2013, 006 INFLUENZA VACCINE (#1) 2025 , 05/24/2019, 04/09/2018, Additional history exists COVID-19 VACCINE ( - 2024- season) 2025 12/18/2020, 11/27/2020 RSV VACCINE (1 - 1-dose 75+ series) 2032 HEPATITIS A VACCINES Aged Out No long er eligible based on patient's age to complete this topic HIB VACCINES Aged Out No longer eligi ble based on patient's age to complete this topic MENINGOCOCCAL VACCINES (ACWY) Aged Out No longer eligible based on patient's age to complete this topic MENINGOCOCCAL VACCINES (B) Aged Out N o longer eligible based on patient's age to complete this topic Medical Devices Not on file Insurance [facility] PCP [facility] [place]SPG PCP [facility] [employer] NON NSPG PCP [facility] [place] NON NSPG PCP [facility] [facility] [facility] [place] NON [place]SPG PCP S[place] [facility] [facility] [place] NON NSPG [facility]CP [facility] [facility] [place] [facility] Care Teams Systems Auditor Relationship Specialty Start Date End Date Ar Butler MD [address] [place] [phone] PCP - General Internal Medicine 01/31/22 Additional Source Comments The information contained in this document represents components of the legal health record. It is not the complete legal health record.[facility]
== END 2025-06-03 12:47 | disposition home or self-care (01) ==
LOC: HO.LABR 12:46
PROVIDERS: Registered Nurse; PCP Internal Medicine; Visit Provider Physician Assistant
DX: Z79.899 Other long term (current) drug therapy (principal)
CPT/HCPCS: 36415; 80053; 80164; 85025